=== PATIENT | male | born 1985 | race Two or more races ===

== ENCOUNTER 2023-02-02 14:09 | Emergency (ER) | payer MEDICAID, OTHER ==
[~2023-02-02] VITALS: Ht 188 cm; Wt 111.1 kg
--- NOTE | 2023-02-02 14:28 | NUR ---
[id number], NOTED DIFFICULT TO AROUSE, PINPOINT PUPIL, NARCAN 4MG TOTAL GIVEN STEAMER GUM CANDY PER EMS. PLACED IN BED, AWAKE ALERT- AGITATED, CONFUSED, RESTLESS, BREATHING UNLABORED SATURATING AT 99%RA, [employer]ERS AT BEDSIDE. WILL CONTINUE TO MONITOR.
--- NOTE | 2023-02-02 15:20 | NUR ---
AT BEDSIDE FOR EVAL.
--- NOTE | 2023-02-02 15:39 | NUR ---
Patient discharged WITH [employer] OFFICERS in stable condition.
[2023-02-02 15:40] VITALS: BP 135/85
== END 2023-02-02 15:39 ==
LOC: ER 14:17
DX: R41.82 Altered mental status, unspecified (principal); T40.2X1A Poisoning by other opioids, accidental (unintentional), initial encounter; J45.909 Unspecified asthma, uncomplicated; Y92.89 Other specified places as the place of occurrence of the external cause
CPT/HCPCS: 82962-TC